=== PATIENT | female | born 1970 | race Caucasian/White ===

== ENCOUNTER 2019-02-19 19:47 | Emergency (ER) | payer OTHER ==
[2019-02-19 19:59] VITALS: TEMP 98.5; BMI 26.9
--- NOTE | 2019-02-19 20:35 | PDOC ---
History of Present Illness - General Chief Complaint: Pain Stated Complaint: ANKLE PAIN Time Seen by Provider: 02/19/19 20:22 History Source: Patient Exam Limitations: No Limitations - History of Present Illness Initial Comments: 02/19/19 20:31 HISTORY OF PRESENT ILLNESS: This is a 48-year-old woman denies medical history presents emergency department for evaluation of right ankle pain. Patient works as a otr flatbed company truck driver for the [employer] in the door open striking her on the lateral side of her right ankle. Patient reports initially was unable to walk on her ankle but is times progressed and use of ice patient is now able to walk but reports some increased pain. She denies any numbness or tingling to her feet. No recent travel or sick contacts. PAST MEDICAL HISTORY: Denies past medical history SURGICAL HISTORY: DUTCH ALLERGIES: MSO4, zoloft REVIEW OF SYSTEMS General/Constitutional: Denies fever or chills. Denies weakness, weight change. HEENT: Denies change in vision. Denies ear pain or discharge. Denies sore throat. Cardiovascular: Denies chest pain or shortness of breath. Respiratory: Denies cough, wheezing, or hemoptysis. Gastrointestinal: Denies nausea, vomiting, diarrhea or constipation. Denies rectal bleeding. Genitourinary: Denies dysuria, frequency, or change in urination. Musculoskeletal: see HPI Skin and breasts: Denies rash or easy bruising. Neurologic: Denies headache, vertigo, loss of consciousness, or loss of sensation. Psychiatric: Denies depression or anxiety. Endocrine: Denies increased thirst. Denies abnormal weight change. Hematologic/Lymphatic: Denies anemia, easy bleeding, or history of blood clots. Allergic/Immunologic: Denies hives or skin allergy. Denies latex allergy. PHYSICAL EXAM General Appearance: Well-appearing, appropriately dressed. No apparent distress , no intoxication. Vascular Pulses: Dorsalis-Pedis (R): 2+, Dorsalis-Pedis (L): 2+ Musculoskeletal/Extremities: Swelling to the lateral malleolus of the right ankle. 2+ DP pulses present. No bony tenderness, deformity, crepitus or step- off to bones of the right lower leg, ankle or foot. Full sensation distal to the injury. Moves toes without difficulty. Integumentary: Appropriate color, dry, warm. No cyanosis, erythema, jaundice or rash Neurologic: bomb technician II-XII intact. Fully oriented, alert. Appropriate mood/affect. Motor strength 5/5. No appreciable EOM palsy, facial droop or sensory deficit. Past History - Past Medical History Allergies/Adverse Reactions: Allergies Allergy/AdvReac Type Severity Reaction Status Date / Time morphine Allergy Intermediate Verified 02/19/19 19:52 sertraline [From Zoloft] AdvReac Intermediate Verified 02/19/19 19:52 COPD: No - Surgical History Gastric Stapling: (gastric sleeve) - Immunization History Immunization Up to Date: No - Suicide/Smoking/Psychosocial Hx Smoking History: Current every day smoker Have you smoked in the past 12 months: No Number of Cigarettes Smoked Daily: 8 Information on smoking cessation initiated: Yes Hx Alcohol Use: No Drug/Substance Use Hx: No *Physical Exam - Vital Signs Last Vital Signs Temp Pulse Resp BP Pulse Ox 98.5 F 92 H 16 128/72 100 02/19/19 19:52 02/19/19 19:52 02/19/19 19:52 02/19/19 19:52 02/19/19 19:52 ED Treatment Course - RADIOLOGY Radiology Studies Ordered: Category Date Time Status ANKLE & FOOT-RIGHT* [RAD] Stat Radiology 02/19/19 20:30 Ordered Medical Decision Making - Medical Decision Making 02/19/19 20:31 A/P: 48-year-old woman here for evaluation of right ankle pain Ambulatory on ankle No bony tenderness or crepitus present to multiple lower leg, ankle and foot on the right side X-rays Motrin 600 mg orally Reassess 02/19/19 20:48 X-rays as read by me: No acute fractures present. No foreign bodies noted. Mortise is intact. Pedro wrap Discharge home I discussed the physical exam findings, ancillary test results and final diagnoses with the patient. I answered all of the patient's questions. The patient was satisfied with the care received and felt comfortable with the discharge plan and treatment plan. The patient will call their primary care physician within 24 hours to arrange follow-up and will return to the Emergency Department with any new, persistent or worsening symptoms. Portions of this note have been documented using voice recognition software. As a result, errors may occur in the special procedure technologist process. Effort has been made to correct all grammatical and special procedure technologist error, but some may have been missed. *DC/Admit/Observation/Transfer Diagnosis at time of Disposition: Acute right ankle pain - Discharge Dispostion Disposition: HOME Condition at time of disposition: Stable Decision to Admit order: No - Referrals Referrals: Bijan Vicente MD [Staff Physician] - - Patient Instructions Additional Instructions: Take Tylenol or Motrin as needed for pain. Follow manufacturers instructions for appropriate dosage. Try not to walk or bear weight on your right ankle as much as possible for the next 3 days. Apply ice for 20 minutes and removed for at least 20 minutes before reapplying the ice. Keep Pedro wrap on your ankle as much as possible to help decrease some of the swelling control pain. Whenever possible keep her foot elevated to decrease swelling to your ankle. You've been given the number for an orthopedist. If symptoms do not resolve within the next 7 days call the orthopedist for further evaluation. Return to emergency department for discoloration of the foot, numbness or tingling to the foot, worsening pain, or any other concerns. Thank you very much for choosing us to provide your emergent healthcare needs. - Post Discharge Activity Forms/Work/School Notes: Back to Work
[2019-02-19] MEDS ORDERED: IBUPROFEN 600 MG TABLET (FP) PO ONE ×3 (20:43→20:52)
[2019-02-19 21:37] VITALS: BP 124/76; PULSE 86
== END 2019-02-19 21:30 | disposition home or self-care (01) ==
LOC: JER 19:47
DX: S99.811A Other specified injuries of right ankle, initial encounter (principal); M25.571 Pain in right ankle and joints of right foot; V78.0XXA Driver of bus injured in noncollision transport accident in nontraffic accident, initial encounter; Y92.488 Other paved roadways as the place of occurrence of the external cause; Y99.0 Civilian activity done for income or pay; Y93.89 Activity, other specified
CPT/HCPCS: 73610-TC-RT-FY; 73630-TC-RT-FY; 99282-25

== ENCOUNTER 2020-02-24 02:08 | Emergency (ER) | payer OTHER ==
[2020-02-24 02:41] VITALS: TEMP 98.1; BMI 26.9
--- NOTE | 2020-02-24 02:43 | PDOC ---
Attending Attestation - Resident Resident Name: Jaleesa Mcallister - HPI HPI: 02/24/20 05:06 Pt presents to the ED complaining of lightheadness, anxiety and shortness of breath. States that she was watching TV when she became acutely anxious. Denies prior history of anxiety. Denies chest pain. Denies prior similar episodes. - Physicial Exam PE: 02/24/20 05:18 Agree with resident exam. Patient is alert and anxious. Pulm: tachypneic, speaking in complete sentences, good air entry b/l. CV: rrr no m/r/g Abdomen: soft, non tender, non distended, no guarding or rebound. - Medical Decision Making 02/24/20 05:28 Pt presents to the ED complaining of anxiety and shortness of breath. EKG is normal. HEART score is 1. symptoms are most consistent with hyperventilation, but given history of arthroscopy, d dimer was checked to evaluate for PE. D dimer is positive. Will check CT PE. 02/24/20 06:08 02/24/20 06:08 Discharge - Discharge Information Problems reviewed: Yes Clinical Impression/Diagnosis: Palpitations, Ventricular aneurysm Condition: Stable Disposition: TRANSFER ACUTE CARE/OTHER HOSP - Follow up/Referral - Patient Discharge Instructions - Post Discharge Activity
[2020-02-24] MEDS ORDERED: LORazepam 2 MG TABLET PO ONE (02:49)
[2020-02-24] MEDS ORDERED: LORazepam 2 MG/ML SDV VIAL ONE (02:56)
[2020-02-24 03:17] LABS: BASO % 0.7 % (0-2.0); HEMATOCRIT 36.6 % (32.4-45.2); HEMOGLOBIN 12.2 GM/dL (10.7-15.3); LYMPH % 32.7 % (8-40); MCH 29.8 pg (25.7-33.7); MCHC 33.5 g/dl (32.0-36.0); MEAN CELL VOLUME 88.9 fl (80-96); MEAN PLT VOLUME 8.5 fl (7.5-11.1); MONO % 8.7 % (3.8-10.2); NEUT % 56.9 % (42.8-82.8); PLATELET COUNT 234 K/MM3 (134-434); RBC 4.11 M/mm3 (3.60-5.2); RDW 14.6 % (11.6-15.6); WHITE BLOOD COUNT 7.2 K/mm3 (4.0-10.0)
[2020-02-24 03:24] LABS: INR 1.07 (0.83-1.09); PROTHROMBIN TIME (PATIENT) 12.6 SEC (9.7-13.0)
[2020-02-24 03:43] LABS: ALBUMIN 3.2 g/dl (3.4-5.0); ALK PHOS 88 U/L (45-117); ANION GAP 8 MMOL/L (8-16); BILIRUBIN,TOTAL 0.2 mg/dL (0.2-1); BLOOD UREA NITROGEN 10.6 mg/dL (7-18); CALCIUM 8.8 mg/dL (8.5-10.1); CHLORIDE 107 mmol/L (98-107); CO2 25 mmol/L (21-32); CREATININE 0.6 mg/dL (0.55-1.3); POTASSIUM 3.6 mmol/L (3.5-5.1); SGOT/AST 12 U/L (15-37); SGPT/ALT 15 U/L (13-61); SODIUM 140 mmol/L (136-145); TOT PROT 6.7 g/dl (6.4-8.2)
--- NOTE | 2020-02-24 04:04 | PDOC ---
History of Present Illness - General Chief Complaint: Lightheaded Stated Complaint: DIZZINESS, CHEST TIGHTNESS Time Seen by Provider: 02/24/20 02:39 - History of Present Illness Initial Comments: 02/24/20 04:03 49 y/o F hx of recent right ankle arthroscopy 4 days ago presents to the ED tremulous and hyperventilating. Pt reports she was sitting down when she began to feel lightheaded and short of breath. Pt denies any cough, wheezing, fevers, chills, chest pain. son at bedside reports mother has been under a significant amount of stress. PMHx: as noted above ROS: as noted SHx: Denies Etoh, IVDA, tobacco use Allergies: NKDA ROS: GENERAL/CONSTITUTIONAL: No fever or chills. No weakness. HEAD, EYES, EARS, NOSE AND THROAT: No change in vision. No ear pain or discharge. No sore throat. CARDIOVASCULAR: No chest pain or shortness of breath RESPIRATORY: No cough, wheezing, or hemoptysis. GASTROINTESTINAL: No nausea, vomiting, diarrhea or constipation. GENITOURINARY: No dysuria, frequency, or change in urination. MUSCULOSKELETAL: No joint or muscle swelling or pain. No neck or back pain. SKIN: No rash NEUROLOGIC: No headache, vertigo, loss of consciousness, or change in strength/sensation. ENDOCRINE: No increased thirst. No abnormal weight change HEMATOLOGIC/LYMPHATIC: No anemia, easy bleeding, or history of blood clots. ALLERGIC/IMMUNOLOGIC: No hives or skin allergy. PE: GENERAL: Awake, alert, and fully oriented, in no acute distress HEAD: No signs of trauma, normocephalic, atraumatic EYES: PERRLA, EOMI, sclera anicteric, conjunctiva clear ENT: Auricles normal inspection, hearing grossly normal, nares patent, oropharynx clear without exudates. Moist mucosa NECK: Normal ROM, supple, no lymphadenopathy, JVD, or masses LUNGS: No distress, speaks full sentences, clear to auscultation bilaterally HEART: Regular rate and rhythm, normal S1 and S2, no murmurs, rubs or gallops, peripheral pulses normal and equal bilaterally. ABDOMEN: Soft, nontender, normoactive bowel sounds. No guarding, no rebound. No masses EXTREMITIES : Normal inspection, Normal range of motion, no edema. No clubbing or cyanosis NEUROLOGICAL: Cranial nerves II through XII grossly intact. Normal speech, normal gait, no focal sensorimotor deficits SKIN: Warm, Dry, normal turgor, no rashes or lesions noted 02/24/20 06:35 Past History - Medical History Allergies/Adverse Reactions: Allergies Allergy/AdvReac Type Severity Reaction Status Date / Time morphine Allergy Intermediate Verified 02/24/20 02:41 sertraline [From Zoloft] AdvReac Intermediate Verified 02/24/20 02:41 Home Medications: Ambulatory Orders NK [No Known Home Medication] 02/24/20 COPD: No - Surgical History Gastric Stapling: Yes (gastric sleeve) - Reproductive History Is Patient Now?: No - Immunization History Immunization Up to Date: No - Psycho-Social/Smoking History Smoking History: Current every day smoker Have you smoked in the past 12 months: Yes Number of Cigarettes Smoked Daily: 3 Information on smoking cessation initiated: Yes - Substance Abuse Hx (Audit-C & DAST Scrn) How often the patient has a drink containing alcohol: Never Score: In Men: 4 or > Positive; In Women: 3 or > Positive: 0 Screen Result (Pos requires Nsg. Audit-10AR): Negative In the last yr the pt used illegal drug/Rx for NonMed reason: No Score: Yes response is considered Positive: 0 Screen Result (Positive result requires Nsg. DAST-10): Negative *Physical Exam - Vital Signs Last Vital Signs Temp Pulse Resp BP Pulse Ox 98.1 F 72 16 131/87 100 02/24/20 02:35 02/24/20 03:37 02/24/20 03:37 02/24/20 03:37 02/24/20 03:37 ED Treatment Course - LABORATORY CBC & Chemistry Diagram: 02/24/20 02:50 02/24/20 02:50 - ADDITIONAL ORDERS Additional order review: Laboratory Results 02/24/20 02/24/20 02/24/20 03:53 02:50 02:50 PT with INR INR D-Dimer 677 H Sodium 140 Potassium 3.6 Chloride 107 Carbon Dioxide 25 Anion Gap 8 BUN 10.6 Creatinine 0.6 Est GFR (CKD-EPI)AfAm 123.18 Est GFR (CKD-EPI)NonAf 106.28 POC Glucometer 102 Calcium 8.8 Total Bilirubin 0.2 AST 12 L ALT 15 Alkaline Phosphatase 88 Troponin I < 0.02 Total Protein 6.7 Albumin 3.2 L 02/24/20 02:50 PT with INR 12.60 INR 1.07 D-Dimer Sodium Potassium Chloride Carbon Dioxide Anion Gap BUN Creatinine Est GFR (CKD-EPI)AfAm Est GFR (CKD-EPI)NonAf POC Glucometer Calcium Total Bilirubin AST ALT Alkaline Phosphatase Troponin I Total Protein Albumin 02/24/20 02/24/20 03:53 02:50 RBC 4.11 MCV 88.9 MCHC 33.5 RDW 14.6 MPV 8.5 Neutrophils % 56.9 Lymphocytes % 32.7 Monocytes % 8.7 Eosinophils % 1.0 Basophils % 0.7 POC Glucometer 102 - RADIOLOGY Radiology Studies Ordered: Category Date Time Status CHEST X-RAY PORTABLE* [RAD] Stat Radiology 02/24/20 02:49 Ordered - Medications Given in the ED: ED Medications Discontinued Medications Generic Name Dose Route Start Last Admin Trade Name Freq PRN Reason Stop Dose Admin Lorazepam 2 mg 02/24/20 02:49 02/24/20 03:29 Ativan PO 02/24/20 02:50 Not Given ONCE ONE Lorazepam 2 mg 02/24/20 03:28 02/24/20 03:29 Ativan Injection - IVPUSH 02/24/20 03:29 2 mg ONCE ONE Administration Medical Decision Making - Medical Decision Making 02/24/20 06:37 49 y/o F hx of recent right ankle arthroscopy 4 days ago presents to the ED tremulous and hyperventilating. Pt reports she was sitting down when she began to feel lightheaded and short of breath ddx: anxiety attack, p.e, pneumonia labs, ekg, chest x-ray meds: ativan cardiac monitoring pt calmed down after ativan and is sleeping elevated d-dimer, in light of recent surgical procedure, will obtain cta. 02/24/20 06:54 EKG: EKG: NSR with absent HEIDY, STD. Nml interval duration and axis. Nml R wave progression. Absent Q waves.
[2020-02-24 04:58] LABS: GLUCOSE,RANDOM 106 mg/dL (74-106)
--- NOTE | 2020-02-24 07:30 | PDOC ---
*Physical Exam - Vital Signs Last Vital Signs Temp Pulse Resp BP Pulse Ox 98.1 F 60 16 120/74 100 02/24/20 02:35 02/24/20 05:46 02/24/20 05:46 02/24/20 05:46 02/24/20 05:46 ED Treatment Course - LABORATORY CBC & Chemistry Diagram: 02/24/20 02:50 02/24/20 02:50 - ADDITIONAL ORDERS Additional order review: Laboratory Results 02/24/20 02/24/20 02/24/20 03:53 02:50 02:50 PT with INR INR D-Dimer 677 H Sodium 140 Potassium 3.6 Chloride 107 Carbon Dioxide 25 Anion Gap 8 BUN 10.6 Creatinine 0.6 Est GFR (CKD-EPI)AfAm 123.18 Est GFR (CKD-EPI)NonAf 106.28 POC Glucometer 102 Random Glucose 106 Calcium 8.8 Total Bilirubin 0.2 AST 12 L ALT 15 Alkaline Phosphatase 88 Troponin I < 0.02 Total Protein 6.7 Albumin 3.2 L 02/24/20 02:50 PT with INR 12.60 INR 1.07 D-Dimer Sodium Potassium Chloride Carbon Dioxide Anion Gap BUN Creatinine Est GFR (CKD-EPI)AfAm Est GFR (CKD-EPI)NonAf POC Glucometer Random Glucose Calcium Total Bilirubin AST ALT Alkaline Phosphatase Troponin I Total Protein Albumin 02/24/20 02/24/20 03:53 02:50 RBC 4.11 MCV 88.9 MCHC 33.5 RDW 14.6 MPV 8.5 Neutrophils % 56.9 Lymphocytes % 32.7 Monocytes % 8.7 Eosinophils % 1.0 Basophils % 0.7 POC Glucometer 102 - Medications Given in the ED: ED Medications Discontinued Medications Generic Name Dose Route Start Last Admin Trade Name Freq PRN Reason Stop Dose Admin Lorazepam 2 mg 02/24/20 02:49 02/24/20 03:29 Ativan PO 02/24/20 02:50 Not Given ONCE ONE Lorazepam 2 mg 02/24/20 03:28 02/24/20 03:29 Ativan Injection - IVPUSH 02/24/20 03:29 2 mg ONCE ONE Administration Medical Decision Making - Medical Decision Making Pt signed out to me by day team 49 y/o F hx of recent right ankle arthroscopy 4 days ago presents to the ED tremulous and hyperventilating, palpitations, near syncope; labs remarkable for elevated d-dimer. Pt was given 2mg Ativan, and has been asleep, but arousable since. On exam, patient is asleep, but arousable to AOX4. Denies any SOB or palpitations currently. 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 Jane (?) cardiology who believes further workup - TTE, HENRI, cardiac MRI required to further assess presence of RV aneurysm vs other cause of prominence. Recommended transfer to [facility] or [facility] for higher level of care as these options are not available at [facility]. Attending spoke with patient who preferred transfer to [facility]. Disposition Transfer Discharge - Discharge Information Problems reviewed: Yes Clinical Impression/Diagnosis: Palpitations, Ventricular aneurysm Condition: Stable Disposition: TRANSFER ACUTE CARE/OTHER HOSP - Follow up/Referral - Patient Discharge Instructions - Post Discharge Activity
--- NOTE | 2020-02-24 10:15 | EKG ---
Test Reason : Blood Pressure : / mmHG Vent. Rate : 088 BPM Atrial Rate : 088 BPM P-R Int : 142 ms QRS Dur : 084 ms QT Int : 380 ms P-R-T Axes : -04 018 033 degrees QTc Int : 459 ms NORMAL SINUS RHYTHM NORMAL ECG NO PREVIOUS ECGS AVAILABLE Confirmed by NOEL BUCHANAN MD ([id number]) on 02/24/2020 10:15:05 AM Referred By: Confirmed By:NOEL BUCHANAN MD
--- NOTE | 2020-02-24 12:05 | PDOC ---
*Physical Exam - Vital Signs Last Vital Signs Temp Pulse Resp BP Pulse Ox 98.1 F 62 16 106/63 100 02/24/20 02:35 02/24/20 07:45 02/24/20 07:45 02/24/20 07:45 02/24/20 07:45 - Physical Exam 02/24/20 12:02 Patient is awake alert no acute distress lungs are clear bilaterally heart is regular with no murmurs rubs or gallops abdomen is soft nontender extremities are warm and well-perfused examination of the right lower extremity shows prior scar from her ankle surgery no associated swelling no signs of erythema or cellulitic changes patient has 2+ DP pulses bilaterally no appreciated leg edema or calf tenderness ED Treatment Course - LABORATORY CBC & Chemistry Diagram: 02/24/20 02:50 02/24/20 02:50 - ADDITIONAL ORDERS Additional order review: Laboratory Results 02/24/20 02/24/20 02/24/20 08:22 03:53 02:50 PT with INR INR D-Dimer Sodium 140 Potassium 3.6 Chloride 107 Carbon Dioxide 25 Anion Gap 8 BUN 10.6 Creatinine 0.6 Est GFR (CKD-EPI)AfAm 123.18 Est GFR (CKD-EPI)NonAf 106.28 POC Glucometer 102 Random Glucose 106 Calcium 8.8 Total Bilirubin 0.2 AST 12 L ALT 15 Alkaline Phosphatase 88 Troponin I < 0.02 < 0.02 Total Protein 6.7 Albumin 3.2 L 02/24/20 02/24/20 02:50 02:50 PT with INR 12.60 INR 1.07 D-Dimer 677 H Sodium Potassium Chloride Carbon Dioxide Anion Gap BUN Creatinine Est GFR (CKD-EPI)AfAm Est GFR (CKD-EPI)NonAf POC Glucometer Random Glucose Calcium Total Bilirubin AST ALT Alkaline Phosphatase Troponin I Total Protein Albumin 02/24/20 02/24/20 03:53 02:50 RBC 4.11 MCV 88.9 MCHC 33.5 RDW 14.6 MPV 8.5 Neutrophils % 56.9 Lymphocytes % 32.7 Monocytes % 8.7 Eosinophils % 1.0 Basophils % 0.7 POC Glucometer 102 - Medications Given in the ED: ED Medications Discontinued Medications Generic Name Dose Route Start Last Admin Trade Name Freq PRN Reason Stop Dose Admin Lorazepam 2 mg 02/24/20 02:49 02/24/20 03:29 Ativan PO 02/24/20 02:50 Not Given ONCE ONE Lorazepam 2 mg 02/24/20 03:28 02/24/20 03:29 Ativan Injection - IVPUSH 02/24/20 03:29 2 mg ONCE ONE Administration Medical Decision Making - Medical Decision Making 02/24/20 12:03 49-year-old female history of recent orthopedic ankle surgery on 818 here today complaining of episode of shortness of breath and feeling of lightheadedness w ith palpitations happened around 1 AM lasted several hours denies any associated chest pain. Has noted leg swelling however she did recently have ankle surgery no history of PE or DVT. Patient was seen from the overnight team and evaluated due to concerns of recent surgery there was concern for PE d-dimer was ordered and was found to be subsequently elevated CTA was pending on my assuming the cheryl carrington's care at [address] angios was performed negative for PE however they did note a concern for possible right ventricular aneurysm. Patient has no knowledge of this deforming the past has never seen a rn residential no previous cardiac work-up. Discussed with the inpatient team for admission to telemetry for further work-up for possible anginal event or prior VT causing the aneurysm as well as information that this is in fact an aneurysm concerns for admission at [facility] due to the lack of specialty care discussed with on-call rn residential Dr. Starr who states that work-up would involve a transthoracic echo possibly a transesophageal echo and a cardiac MRI which is unavailable at [facility]. Discussed with the patient patient would like to be transferred to [facility] will discuss with [facility] transfer center for higher level of care 02/24/20 12:08 labs reviewed and are unremarkable. ekg with nsr 88 bpm, no st elevation or depression, Discharge - Discharge Information Problems reviewed: Yes Clinical Impression/Diagnosis: Palpitations, Ventricular aneurysm - Follow up/Referral - Patient Discharge Instructions - Post Discharge Activity
[2020-02-24 13:14] VITALS: BP 98/69; PULSE 75
== END 2020-02-24 13:14 | disposition short-term general hospital (02) ==
LOC: JER 02:08
PROC: 3E033NZ Introduction of Analgesics, Hypnotics, Sedatives into Peripheral Vein, Percutaneous Approach (ICD-10-PCS; principal; 2020-02-24)
DX: R00.2 Palpitations (principal); I25.3 Aneurysm of heart
CPT/HCPCS: 36415; 71045-TC-FY; 71275-TC; 80053; 82962; 84484; 85025; 85379; 85610; 93005; 93010; 99285-25; Q9967; U0003